=== PATIENT | male | born 1980 | race Caucasian/White ===

== ENCOUNTER 2023-02-23 16:35 | Emergency (ER) | payer OTHER, SELFPAY ==
[2023-02-23 16:50] VITALS: BP 157/100; PULSE 76; RESP 16; TEMP 37.4; O2SAT 98
[2023-02-23 16:53] VITALS: BP 157/100; PULSE 76; RESP 16; TEMP 37.4; O2SAT 98
--- NOTE | 2023-02-23 17:18 | ED.URI ---
HPI - URI/Sore Throat General Chief Complaint: Upper Respiratory Infection Stated Complaint: Sore Throat/Sinus Time Seen by Provider: 02/23/23 17:18 Source: patient Mode of arrival: ambulatory Limitations: no limitations History of Present Illness HPI Narrative: 42 yo M presents with c/o sinus congestion, sore throat, cough, fatigue for 2 days. Afebrile. No CP or SOB. Not taking any OTC meds to treat his symptoms. Wants covid testing. all systems reviewed and negative except as noted above. Related Data Home Medications Medication Instructions Recorded Confirmed No Home Medications 02/23/23 02/23/23 Allergies Allergy/AdvReac Type Severity Reaction Status Date / Time No Known Allergies Allergy Verified 02/23/23 16:52 Review of Systems Review of Systems: CONSTITUTIONAL: Denies fever, chills, or sweats. EYES: Denies visual changes, redness, or discharge. ENT: Reports rhinorrhea, congestion, sore throat. Denies otalgia. CARDIOVASCULAR: Denies chest pain, palpitations, or edema. RESPIRATORY: reports cough. Denies dyspnea. GASTROINTESTINAL: Denies abdominal pain, nausea, vomiting, or diarrhea. GENITOURINARY: Denies dysuria or hematuria. SKIN: Denies rash or itching. MUSCULOSKELETAL: Denies back pain, joint pain, or myalgia. NEUROLOGIC: Denies headache, numbness, or weakness. PSYCHIATRIC: Denies anxiety or depression. All other systems reviewed are negative, except as documented in HPI. PMFSH Comments At time of signature, agree with nursing past medical, surgical, social and family history. There is no relevant family history pertinent to the presenting complaint. Exam Narrative: GENERAL: This is a well-nourished, well-developed patient, in no apparent distress. HEAD: normocephalic, atraumatic. EYES: PERRL. Sclera clear/white. Vision is grossly intact. EARS: External ears normal, auditory canals clear and without drainage, TMs normal without perforation. Hearing grossly intact. NOSE: External nose normal with clear nasal drainage, mild erythema to bilateral nares without swelling. THROAT: Mucous membranes moist, posterior pharynx clear. NECK: Neck supple, non-tender without lymphadenopathy, masses or thyromegaly. CARDIOVASCULAR: Regular rate and rhythm without murmurs, gallops, or rubs. RESPIRATORY: Clear to auscultation. Breath sounds equal bilaterally. No wheezes, rales, or rhonchi. SKIN: warm, Dry, intact with no suspicious lesions or rash, good texture and turgor. NEURO: awake, alert, and oriented to person, place and time. There were no obvious focal neurologic abnormalities. EXTREMITIES: No joint tenderness, effusion, or edema noted. Course Course Level of Care: Express Care Visit Vital Signs Vital signs: Vital Signs Temperature 37.4 C 02/23/23 16:50 Pulse Rate 76 02/23/23 16:50 Respiratory Rate 16 02/23/23 16:50 Blood Pressure 157/100 H 02/23/23 16:50 Pulse Oximetry 98 02/23/23 16:50 Oxygen Delivery Room Air 02/23/23 16:50 Temperature 37.4 C 02/23/23 16:53 Pulse Rate 76 02/23/23 16:53 Respiratory Rate 16 02/23/23 16:53 Blood Pressure 157/100 H 02/23/23 16:53 Pulse Oximetry 98 02/23/23 16:53 Oxygen Delivery Room Air 02/23/23 16:53 Reviewed MDM - URI/Sore Throat MDM Narrative Medical decision making narrative: Patient is aware of diagnosis, understands and agrees to treatment plan. Anticipatory guidance given. Patient agrees to follow-up as directed and is aware of reasons to seek care at the emergency department. Portions of this record may have been created with voice recognition software Differential Diagnosis Differential diagnosis: Likely upper respiratory infection and viral infection Lab Data Labs: Lab Results 02/23/23 Range/Units 17:00 POC SARS CoV-2 Ag Negative (Negative) Influenza A Screen Negative Reference Range: Negative Influenza
[2023-02-23 17:21] VITALS: BP 152/82; PULSE 68
== END 2023-02-23 17:32 | disposition home or self-care (01) ==
PROVIDERS: Emergency Provider Nurse Practitioner Family
DX: J06.9 Acute upper respiratory infection, unspecified (principal); R05.9 Cough, unspecified; Z20.822 Contact with and (suspected) exposure to COVID-19; I10 Essential (primary) hypertension; Z86.16 Personal history of COVID-19
CPT/HCPCS: 87081; 87426; 87804; 87880; 99202; C9803; G0463